=== PATIENT | male | born 1955 | race Caucasian/White ===

== ENCOUNTER → 2023-07-12 06:26 | Day surgery (SDC) | payer MEDICARE, OTHER, SELFPAY | LOC: GI 06:26 | PROVIDERS: ATTENDING PHYSICIAN Internal Medicine Gastroenterology; FAMILY PHYSICIAN Registered Nurse | DX: Z12.11 Encounter for screening for malignant neoplasm of colon (principal); D12.2 Benign neoplasm of ascending colon; D12.3 Benign neoplasm of transverse colon; K57.30 Diverticulosis of large intestine without perforation or abscess without bleeding; K64.2 Third degree hemorrhoids; K21.00 Gastro-esophageal reflux disease with esophagitis, without bleeding; K22.89 Other specified disease of esophagus; K31.89 Other diseases of stomach and duodenum; K44.9 Diaphragmatic hernia without obstruction or gangrene; R12 Heartburn; Z86.010 Personal history of colon polyps | CPT/HCPCS: 45385; 43239; 88305; 88342 ==

== ENCOUNTER → 2024-03-12 14:04 | Outpatient (REF) | payer MEDICARE, OTHER, SELFPAY | LOC: HWRAD 14:04 | PROVIDERS: ATTENDING PHYSICIAN Urology; FAMILY PHYSICIAN Registered Nurse | DX: E04.1 Nontoxic single thyroid nodule (principal); N20.2 Calculus of kidney with calculus of ureter | CPT/HCPCS: 74018; 76536 ==

== ENCOUNTER → 2024-04-02 07:24 | Outpatient (REF) | payer MEDICARE, OTHER, SELFPAY ==
[2024-04-02 07:55] VITALS: BP 122/66; BP_SYST 71
== END ==
LOC: RADI 07:24
PROVIDERS: ATTENDING PHYSICIAN Registered Nurse
DX: E04.1 Nontoxic single thyroid nodule (principal)
CPT/HCPCS: 88173; 10005

== ENCOUNTER → 2024-05-06 06:21 | Outpatient (REF) | payer MEDICARE, OTHER, SELFPAY ==
[2024-05-06 08:48] LABS: Hemoglobin 14.4 g/dL (13.0-18.0); Mean Corp Hgb Conc. 32.7 g/dL (33.0-37.0); Mean Corpuscular Hgb 28.6 pg (27.0-31.0); Mean Corpuscular Volume 87.5 fL (80.0-94.0); Mean Platelet Volume 12.8 fL (7.4-10.4); Platelet Count 212 10^3/uL (130-400); Red Blood Cell Count 5.03 10^6/uL (4.70-6.10); White Blood Cell Count 6.2 10^3/uL (4.8-10.8)
[2024-05-06 09:38] LABS: ALT (SGPT) 14 U/L (0-50); AST (SGOT) 20 U/L (17-59); Albumin 3.9 g/dl (3.5-5.0); Alkaline Phosphatase 49 U/L (38-126); Blood Urea Nitrogen 26 mg/dl (9-20); Calcium 9.4 mg/dl (8.4-10.2); Carbon Dioxide 30 mmol/L (22-30); Chloride 106 mmol/L (98-107); Glucose 82 mg/dl (70-99); Potassium 4.4 mmol/L (3.5-5.1); Sodium 141 mmol/L (135-145); Total Bilirubin 0.7 mg/dl (0.2-1.3); Total Protein 6.1 g/dl (6.3-8.2); eGFR > 60.00
== END ==
LOC: SDSPAT 06:21
PROVIDERS: ATTENDING PHYSICIAN Surgery; FAMILY PHYSICIAN Registered Nurse
DX: Z01.818 Encounter for other preprocedural examination (principal)
CPT/HCPCS: 80053; 85027; 93005

== ENCOUNTER 2024-05-19 06:31 | Day surgery (SDC) | payer MEDICARE, OTHER, SELFPAY ==
[2024-05-06 14:06] VITALS: BMI 24.3
[2024-05-19] VITALS (9 sets, daily range): BP systolic 121–143; BP diastolic 67–80; BMI 24.3
[2024-05-19] MEDS: TYLENOL 1000 MG PO (08:39)
[2024-05-19] MEDS: NORMOSOL-R/PLASMALYTE-A 1000 IV (08:45)
--- NOTE | 2024-05-19 10:07 | HP.FOC2 ---
Focused History & Physical
Chief Complaint
HPI:
Chief Complaint: Symptomatic cholelithiasis
HPI / Indication for Planned Procedure: Patient is a 68-year-old male recently seen in outpatient surgical evaluation secondary to history of postprandial bloating, gassiness and abdominal discomfort. Intermittent in nature and in various severity.
Symptoms typically worse overnight with progressive bloating, distention, nausea and even vomiting. Ultrasound imaging confirmed gallbladder filled with stones. No biliary ductal dilation. Patient presents today for cholecystectomy.
Relevant Past Medical History: Other (Elevated cholesterol, history of diverticulitis, osteopenia, hemorrhoids, low T, GERD)
Relevant Social History: Negative
Relevant Family History: Negative
Relevant Past Surgical History: Positive for (Parathyroidectomy, open left inguinal hernia repair)
Review of Systems
Review of Pertinent Systems: All Systems Negative
Medication
See Medication form for detailed medications: Yes
Medication List (including Herbals & OTC):
famotidine 20 mg tablet 20 mg PO BID 04/02/24
aspirin 81 mg capsule 81 mg PO HS 05/12/24
magnesium 200 mg tablet 400 mg PO DAILY 05/12/24
polyethylene glycol 3350 17 gram oral powder packet (Miralax) 17 g PO DAILY PRN constipation 05/12/24
rosuvastatin 5 mg tablet 5 mg PO QPM 05/12/24
Medications Reviewed: Yes
Allergies and Reactions
Patient has Allergies: Yes
Noted Allergies and Reactions:
Allergy/AdvReac Type Severity Reaction Status Date / Time
No Known Drug Allergies Allergy Mild Unknown Verified 05/19/24 08:33
Pertinent Physical Exam
All Other Systems: Negative
Head/Neck: Normal
Lungs: Normal
Heart: Normal
Abdomen: Normal
Extremities: Normal
Neurological: Normal
Diagnosis / Assessment
Patient is a 68-year-old male with probable symptomatic cholelithiasis/chronic calculus cholecystitis presenting today for cholecystectomy
Plan / Procedure
Laparoscopic cholecystectomy with intraoperative cholangiogram
Anesthesia/Sedation to be done by Anesthesia Provider: Yes
--- NOTE | 2024-05-19 10:09 | W.SUR.PREOP ---
Pre-Operative Surgical Note
-
I have examined this patient prior to the performance of the scheduled procedure.
The patient's condition is unchanged from the time of the current History and
Physical and the patient is able to undergo the scheduled procedure.
--- NOTE | 2024-05-19 11:52 | W.IMMPOSTOP ---
Addendum entered and electronically signed by Bro No MD 05/19/24 12:00:
#[id number]
Original Note:
Surgical Immed Post Op Note
-
Primary Surgeon: Bro No MD
Assisting Surgeon: Stephenie ROCHA
Pre-op Diagnosis: Chronic calculous cholecystitis
Post-op Diagnosis: Chronic calculus cholecystitis
Procedure Performed: Laparoscopic cholecystectomy with intraoperative cholangiogram
Anesthesia Type: GETA +0.25% Marcaine
Specimen / Cultures: Gallbladder
Estimated Blood Loss: 6 mL
Complications: None immediate
Operative Findings: Physiologically distended gallbladder with stones. Intraoperative cholangiogram normal. Cystic duct controlled with 3 clips proximally. Cystic artery controlled with clips as well as posterior cystic artery branch. No
disruption of gallbladder during cholecystectomy. Gallbladder extracted at epigastric 12 mm trocar site.
[2024-05-19] MEDS: DEMEROL 12.5 MG IV (12:33)
== END 2024-05-19 14:00 | disposition home or self-care (01) ==
LOC: SDS 06:31
PROVIDERS: ATTENDING PHYSICIAN Surgery; FAMILY PHYSICIAN Registered Nurse
DX: K80.10 Calculus of gallbladder with chronic cholecystitis without obstruction (principal)
CPT/HCPCS: 47563; 88304; 74300; 76000; A4300

== ENCOUNTER 2024-11-29 12:10 | Emergency (ER) | payer MEDICARE, OTHER, SELFPAY ==
[2024-11-29 12:17] VITALS: BP 132/74
[2024-11-29 12:40] LABS: Hematocrit 47.3 % (39.0-52.0); Hemoglobin 15.3 g/dL (13.0-18.0); Mean Corp Hgb Conc. 32.3 g/dL (33.0-37.0); Mean Corpuscular Volume 85.1 fL (80.0-94.0); Nucleated Red Blood Cells % 0 % (-); Platelet Count 217 10^3/uL (130-400); Red Cell Dist. Width 14.0 % (11.5-14.5)
[2024-11-29 12:47] LABS: Urine Character Clear (Clear)
[2024-11-29 12:52] LABS: ALT (SGPT) 22 U/L (0-50); AST (SGOT) 23 U/L (17-59); Albumin 4.3 g/dl (3.5-5.0); Alkaline Phosphatase 55 U/L (38-126); Blood Urea Nitrogen 22 mg/dl (9-20); Calcium 9.9 mg/dl (8.4-10.2); Carbon Dioxide 30 mmol/L (22-30); Chloride 103 mmol/L (98-107); Glucose 100 mg/dl (70-99); Lipase 353 U/L (23-300); Sodium 137 mmol/L (135-145); Total Protein 6.8 g/dl (6.3-8.2); eGFR > 60.00
[2024-11-29 12:59] LABS: Potassium 4.6 mmol/L (3.5-5.1)
[2024-11-29 13:33] LABS: Urine Red Blood Cell 26-30 /HPF (0-2); Urine Squamous Cell 0-2 /LPF (Few); Urine White Cell 0-2 /HPF (0-5)
[2024-11-29 14:16] VITALS: BP 121/70
[2024-11-29] MEDS: REGLAN 10 MG IV (14:16)
[2024-11-29] MEDS: NSS 1000 IV (14:16)
[2024-11-29] MEDS: BENADRYL 25 MG IV (14:17)
[2024-11-29 14:22] VITALS: BMI 24.5
[2024-11-29 14:26] VITALS: BP 121/70
[2024-11-29 15:00] VITALS: BP 120/70
--- NOTE | 2024-11-29 17:25 | ED.GENMED ---
History of Present Illness
General
Chief Complaint: Urinary Symptoms
Source: patient
Time Seen by Provider: 11/29/24 13:33
History of Present Illness
History of Present Illness:
Note:
CHIEF COMPLAINT(S)
Blood in urine, persistent migraine headaches for two weeks.
HISTORY OF PRESENT ILLNESS
The patient is a 69-year-old male who presents with blood in his urine. He has a history of hematuria and had a previous urological evaluation, which identified kidney stones and polyps in both kidneys. The patient was advised to hydrate and monitor
his condition. Recently, the patient has developed blood in his urine again and is experiencing severe migraine headaches for the past two weeks. The headaches have led him to seek emergency care at [facility], where a combination of Benadryl
and another medication provided temporary relief lasting less than 24 hours. The patient denies fever but reports chills.
The patient has recently undergone treatment for thyroid cancer, including a total thyroidectomy followed by radioactive iodine therapy three days ago. He has a history of neck arthritis and mentions that his headaches have been persistent, with
previous instances lasting up to a month. The patient has tried medications, including acetaminophen, ibuprofen, muscle relaxants, and prescription-strength narcotics without relief. Additionally, the patient reports frequent urination with blood
predominantly at the beginning of the stream and also notes the presence of solid particles in the urine.
The patient has no history of chest pain, but he reports occasional palpitations and no significant shortness of breath. He also mentions a previously planned inguinal hernia repair that was postponed due to his current health issues.
PAST MEDICAL AND SURIGICAL HISTORY
The patient has a history of thyroid cancer, for which he underwent a total thyroidectomy and received radioactive iodine therapy. He also has a history of kidney stones and renal polyps.
CHRONIC MEDICAL CONDITIONS SIGNIFICANTLY AFFECTING CARE
Thyroid cancer (recently treated), kidney stones, neck arthritis.
SOCIAL DETERMINANTS AFFECTING HEALTH
There is a potential financial burden due to medical treatments and postponed procedures.
MEDICATIONS
The patient has tried acetaminophen, ibuprofen, muscle relaxants, and prescription narcotics as part of his headache management, though specific dosages were not provided.
REVIEW OF SYSTEMS
- Neurological: Persistent migraine headaches.
- Genitourinary: Hematuria, frequent urination with blood appearing at the initiation of the stream.
- General: Reports chills but no fever.
PHYSICAL EXAM
General: Alert, in no acute distress.
Skin: Warm, dry.
Head: Normocephalic, atraumatic.
Neck: Supple, trachea midline.
Eyes, ears, nose, mouth, and throat: Oral mucosa moist.
Cardiovascular: Heart rate regular, no murmurs, normal peripheral perfusion.
Respiratory: Clear to auscultation bilaterally, respirations non-labored.
Gastrointestinal: Non-tender, non-distended abdomen.
Back: No tenderness upon examination.
Musculoskeletal: Normal range of motion, normal strength.
Neurological: Alert and oriented to person, place, time, and situation, no focal neurological deficit observed.
Psychiatric: Cooperative, appropriate mood and affect.
PLAN
1. Perform a head computed tomography scan to assess persistent headaches.
2. Conduct an ultrasound of the kidneys and bladder to evaluate hematuria.
3. Administer medication similar to the previously effective combination (including Benadryl) during this visit.
4. Provide intravenous fluids for hydration.
5. Monitor patients urine output and characteristics.
6. Evaluate the need for further follow-up based on diagnostic results.
DIFFERENTIAL DIAGNOSIS
The Differential Diagnosis includes, in no particular order and is not limited to:
1. Kidney stones
2. Urinary tract infection
3. Bladder tumor
4. Renal polyps
5. Migraine headaches
6. Cervical spondylosis
7. Post-radioactive iodine thyroiditis
8. Medication-induced headaches
9. Inguinal hernia complications
10. Hematological disorders affecting urine color
Disposition:
SUMMARY OF ENCOUNTER
A 69-year-old male presented with hematuria and persistent migraines lasting two weeks. A urinalysis indicated blood in the urine without signs of infection. A renal ultrasound revealed the presence of bilateral renal polyps and nephrolithiasis, but
no hydronephrosis. A CT scan of the head was performed due to persistent headaches, with normal results. The patients neurological examination was unremarkable. He reported a history of chronic headaches, and his current headache condition has
improved. The patient was previously seen in another emergency department for similar complaints and continues to be treated as an outpatient.
DISPOSITION
Discharge
ASSESSMENT
Chronic migraine headache with recent exacerbation, hematuria likely due to known renal issues.
EMERGENCY TREATMENTS ADMINISTERED
Administered ketorolac (Toradol) prior to discharge.
PLAN
The patient will follow up with urology to evaluate hematuria, given his history of renal issues, including polyps and stones. Continuation of outpatient headache management is advised.
INDEPENDENT REVIEW OF LABS AND INTERPRETATION OF TESTS
- My independent review of the urinalysis indicates the presence of blood without infection: no white cells, negative leukocyte esterase, and negative nitrite.
- My independent review of the CT scan of the head indicates normal findings.
- My independent interpretation of the renal ultrasound shows bilateral renal polyps and nephrolithiasis, with no hydronephrosis.
PATIENT EDUCATION AND COUNSELING
The patient was advised on the importance of hydrating adequately and managing headache symptoms. Additionally, the patient was educated on the findings from the renal ultrasound and the need for follow-up with urology.
FOLLOW-UP INSTRUCTIONS
The patient is advised to follow up with his urologist regarding the hematuria and renal findings.
MEDICATION RECONCILIATION
Administered medication: ketorolac (Toradol).
MEDICAL DECISION MAKING
1. Number and Complexity of Problems Addressed:
Chronic conditions affecting care: thyroid cancer, kidney stones, neck arthritis.
2. Data: Amount and/or Complexity of Data Reviewed and Analyzed
Category 1
- Laboratory tests (urinalysis) and imaging (renal ultrasound, head CT) were reviewed.
- Confirmed findings of urinary blood, absence of infection in UA, and normal results for the CT scan.
Category 2
- My independent interpretation of the renal ultrasound confirmed bilateral renal polyps and nephrolithiasis.
3. Risk:
Prescription medication (ketorolac) was administered for headache pain. The patient has chronic renal conditions that will require ongoing management and monitoring.
DIAGNOSIS
- Hematuria secondary to nephrolithiasis and renal polyps (R31.9).
- Migraine without aura, unspecified not intractable, without status migrainosus (G43.009).
Phy Exam
Physical Exam
Physical Exam:
.
Course
Orders/Labs/Results
Orders:
Orders
11/29/24 12:31
Complete Blood Count/With Diff Urgent
Comprehensive Metabolic Panel Urgent
Lipase Urgent
Urinalysis Reflex To Culture Urgent
Date Specimen was Collected: 11/29/24
Time Specimen was Collected: 12:22
Urine Microscopic Reflex Cult Urgent
11/29/24 13:55
CT Head W/o Iv Contrast Urgent
Comment:
Reason For Exam: HUYNH
0.9% Sodium Chloride 1000 ml [Nss] 1,000 ml IV BOLUS
Diphenhydramine [Benadryl] 25 mg IV NOW STA
Metoclopramide [Reglan] 10 mg IV NOW STA
US Renal With Bladder Urgent
Comment: bladder not full ok, looking at ureteral jets
Reason For Exam: hematuria
Abnormal Lab Results
11/29/24
12:31
MCHC 32.3 L g/dL
(33.0-37.0)
MPV 11.2 H fL
(7.4-10.4)
BUN 22 H mg/dl
(9-20)
Glucose 100 H mg/dl
(70-99)
Lipase 353 H U/L
(23-300)
Ur Occult Blood Reflex 4+ A
(Negative)
Urine RBC 26-30 A /HPF
(0-2)
Urine Bacteria (Reflex) Few A
(Negative)
11/29/24 12:31
11/29/24 12:31
Vital Signs
Initial and Last Documented VS:
Initial Vital Signs
Temp Pulse Resp BP Pulse Ox
98.0 F 64 18 132/74 96
11/29/24 12:17 11/29/24 12:17 11/29/24 12:17 11/29/24 12:17 11/29/24 12:17
Last Documented Vital Signs
Temp Pulse Resp BP Pulse Ox
98.0 F 54 13 120/70 99
11/29/24 12:17 11/29/24 15:00 11/29/24 15:00 11/29/24 15:00 11/29/24 15:00
*Pulse Oximetry
SaO2: 99
Oxygen Mode of Delivery: Room air
Patient hypoxic: no
*Critical Care Note
Total Time (30-74mins, 75-104mins- exclusive of procedures): Not Applicable
ED Attending Note
-
Portions of this chart may have been created with voice recognition software.� Occasional wrong word or��sound alike� substitutions may have occurred due to the inherent limitations of voice recognition software.
Discharge Plan
Departure
Patient Disposition: Home (Routine Discharge)
Date of Disposition: 11/29/24
Time of Disposition: 17:27
Patient with high blood pressure during this ER visit?: No
Discharge Problem:
Hematuria, Headache
Instructions: Blood in the Urine (Hematuria), Adult (DC), Headache in adults - ED (DC)
Prescriptions:
No Action
famotidine 20 mg Tablet
20 mg PO BID
polyethylene glycol 3350 [Miralax] 17 gram Powder In Packet
17 g PO DAILY PRN (Reason: constipation)
magnesium 200 mg Tablet
400 mg PO DAILY
rosuvastatin 5 mg Tablet
5 mg PO QPM
aspirin 81 mg Capsule
81 mg PO HS
acetaminophen [Tylenol Extra Strength] 500 mg tablet
1,000 mg PO Q6HPRN PRN (Reason: mild pain) Qty: 1 0RF
ibuprofen 200 mg tablet
400 mg PO Q6HPRN PRN (Reason: moderate pain) Qty: 1 0RF
polyethylene glycol 3350 [Miralax] 17 gram/dose powder
4 g PO DAILY PRN (Reason: Constipation) Qty: 119 0RF
Rx Instructions:
start a laxative such as MIRALAX on day 2 after surgery if no bowel movement yet as long as no nausea/vomiting and passing gas
oxycodone 5 mg tablet
5 mg PO Q4HPRN PRN (Reason: breakthrough/severe pain) Qty: 5 0RF
Referrals:
Amisha Chadwick CRNP [Family Provider, Family Practice]
Activity Restrictions/Additional Instructions:
Please see your Urologist in the next 1 week for follow-up and re-evaluation. Return immediately for inability urinate, increased blood in the urine, abdominal pain, fevers or any other concerns. Please have your urine rechecked in the next 2
weeks to ensure the blood is cleared.
Interventions
Interventions:
*Risk Screen - Suicide Last Done: 11/29/24 12:17
*General Assessment Last Done: 11/29/24 14:22
*Neglect/Abuse Screening Last Done: 11/29/24 14:22
*ED- Fall Risk Assessment Last Done: 11/29/24 14:22
*ED COVID-19 Vaccine History Last Done: 11/29/24 14:22
*ED Influenza Vaccine History Last Done: 11/29/24 14:22
ED-Male Genitourinary Assessment Last Done: 11/29/24 14:22
Discharge Date and Time
Print Language: YEMENI
[2024-11-29] MEDS: TORADOL 30 MG IV (18:26)
[2024-11-29 18:31] VITALS: BP 143/71
== END 2024-11-29 18:49 | disposition home or self-care (01) ==
LOC: EMR 12:10
PROVIDERS: Emergency Medicine; EMERGENCY PHYSICIAN Emergency Medicine; FAMILY PHYSICIAN Registered Nurse
DX: R31.9 Hematuria, unspecified (principal); R51.9 Headache, unspecified; C73 Malignant neoplasm of thyroid gland; E89.0 Postprocedural hypothyroidism; K40.90 Unilateral inguinal hernia, without obstruction or gangrene, not specified as recurrent; M47.812 Spondylosis without myelopathy or radiculopathy, cervical region; N20.0 Calculus of kidney; Z87.442 Personal history of urinary calculi
CPT/HCPCS: 99284; 96374; 96375 ×2; 96361; 70450; 76770; 80053; 81003; 81015; 83690; 85025

== ENCOUNTER 2025-01-30 06:20 | Day surgery (SDC) | payer MEDICARE, OTHER, SELFPAY ==
[2025-01-20 13:23] VITALS: BMI 24.2
[2025-01-30] VITALS (7 sets, daily range): BP systolic 122–133; BP diastolic 60–77; BMI 24.2
[2025-01-30] MEDS: NORMOSOL-R/PLASMALYTE-A 1000 IV (07:55)
[2025-01-30] MEDS: TYLENOL 1000 MG PO (08:02)
--- NOTE | 2025-01-30 10:38 | W.IMMPOSTOP ---
Addendum entered and electronically signed by Bro No MD 01/30/25 10:59:
#[id number]
Original Note:
Surgical Immed Post Op Note
-
Primary Surgeon: Bro No MD
Assisting Surgeon: Kemi Lombardo PA-C
Pre-op Diagnosis: Right inguinal hernia
Posterior neck subcutaneous lipoma
Right posterior shoulder sebaceous cyst
Post-op Diagnosis: Right inguinal hernia -indirect
Posterior neck subcutaneous lipoma; 6 cm excised diameter including margin
Right posterior shoulder sebaceous cyst 2.5 cm excised diameter including margin
Procedure Performed: Robotic assisted laparoscopic KESHIA repair RIH with mesh; 3D max large mid weight
Excision posterior neck subcutaneous lipoma
Excision posterior shoulder sebaceous cyst
Anesthesia Type: GETA +1% lidocaine/0.25% Marcaine with epinephrine
Specimen / Cultures: Shoulder sebaceous cyst, neck subcutaneous lipoma
Estimated Blood Loss: 8 mL
Complications: None immediate
Operative Findings:
--Right indirect inguinal hernia. Direct and femoral spaces normal. Modest lipoma associated with spermatic cord reduced and excised to facilitate mesh placement. 3D max large mid weight mesh repair secured to Roque's ligament with 2-0 Vicryl
stitch x 2. Peritoneal flap closed with 2-0 Monocryl STRATAFIX spiral. Left inguinal region normal. No additional incidental findings.
--Right posterior shoulder area sebaceous cyst -excised in entirety without disruption. 2.5 cm excised diameter including margin
-- Posterior neck subcutaneous lipoma well encapsulated 6 cm maximal diameter
The assistance of Kemi Lombardo PA-C was required due to the complexity of the procedure. During the robotic laparoscopic procedure Kemi Lombardo PA-C assisted with port placement, robotic instrumentation and suture material exchanges, and closure of
the surgical incision sites. For the open procedures Kemi Lombardo PA-C assisted with tissue retraction for exposure as well as skin closure. I was present for the entirety of the operative procedure through closure.
[2025-01-30] MEDS: DILAUDID 0.5 MG IV (11:18)
== END 2025-01-30 12:43 | disposition home or self-care (01) ==
LOC: SDS 06:20
PROVIDERS: ATTENDING PHYSICIAN Surgery; FAMILY PHYSICIAN Registered Nurse
DX: K40.90 Unilateral inguinal hernia, without obstruction or gangrene, not specified as recurrent (principal); D17.0 Benign lipomatous neoplasm of skin and subcutaneous tissue of head, face and neck; L72.0 Epidermal cyst
CPT/HCPCS: 49650; 11423; 11403; 88304; 93005; C1781